=== PATIENT | male | born 1955 | race Caucasian/White ===

== ENCOUNTER 2017-11-18 19:49 | Emergency (ER) | payer OTHER ==
[~2017-11-18] VITALS: Ht 172.7 cm; Wt 170.1 kg
[2017-11-18] MEDS ORDERED: PIPER-TAZ 3.375 GM 50 ML IV STA (20:15)
[2017-11-18] MEDS ORDERED: SODIUM CHLORIDE 0.9% 500ML 500 ML IV STA (20:15)
[2017-11-18] MEDS ORDERED: METFORMIN HCL500 M2 PO (20:18)
[2017-11-18] MEDS ORDERED: PREDNISONE10 MG PO (20:18)
[2017-11-18] MEDS ORDERED: GLIMEPIRIDE2 MG PO (20:18)
[2017-11-18] MEDS ORDERED: VANCOMYCIN 1GM/NS 250 ML 250 ML IV ONE (20:30)
[2017-11-18 20:45] LABS: BASOPHILS % 0.2 % (0.0-1.0); EOSINOPHILS % 0.4 % (0.0-6.0); HEMATOCRIT 37.4 % (38.2-49.6); HEMOGLOBIN 12.7 g/dL (14.0-18.0); LYMPHOCYTES # (AUTO) 0.3 (1.0-3.2); LYMPHOCYTES % 2.8 % (18.0-39.1); MEAN CORPUSCULAR HEMOGLOBIN 29.8 pg (28-32); MEAN CORPUSCULAR VOLUME 87.8 fL (81-99); MONOCYTES % 10.2 % (4.4-11.3); NEUTROPHILS # (AUTO) 8.6 (2.1-6.9); NEUTROPHILS % 85.8 % (38.7-80.0); PLATELET COUNT 53 x10e3/uL (140-360); RED BLOOD COUNT 4.26 x10e6/uL (4.3-5.7); RED CELL DISTRIBUTION WIDTH 15.5 % (11.7-14.4)
[2017-11-18 20:49] LABS: INR 1.29; PROTHROMBIN TIME 15.1 seconds (11.9-14.5)
[2017-11-18 20:50] LABS: PARTIAL THROMBOPLASTIN TIME 32.8 seconds (23.8-35.5)
--- NOTE | 2017-11-18 20:51 | Diagnostic Imaging Report ---
EXAM: XR CHEST 1 VIEW DATE: 11/18/2017 8:15 PM INDICATION: Cellulitis COMPARISON: None FINDINGS: Lines and Tubes: None Heart and Mediastinum: Grossly unremarkable given low lung volumes, motion, and rotation. Lungs and Pleura: Perihilar opacities. Bones and Soft Tissues: No acute findings. IMPRESSION: 1. Underpenetration, body habitus, rotation to the right, and motion artifact degrade image quality limiting evaluation. 2. Questionable perihilar opacities could represent edema or infectious process. Signed by: Dr. Enrique Ayala MD on 11/18/2017 8:47 PM
[2017-11-18 21:01] LABS: ALANINE AMINOTRANSFERASE 84 IU/L (0-55); ALBUMIN 2.4 g/dL (3.5-5.0); ALBUMIN/GLOBULIN RATIO 0.7 (0.8-2.0); ALKALINE PHOSPHATASE 83 IU/L (40-150); ANION GAP 9.8 mmol/L (8-16); BLOOD UREA NITROGEN 14 mg/dL (7-26); BUN/CREATININE RATIO 17 (6-25); CALCIUM 8.4 mg/dL (8.4-10.2); CARBON DIOXIDE 28 mmol/L (22-29); CHLORIDE 97 mmol/L (98-107); CREATINE KINASE 599 IU/L (30-200); CREATININE, SERUM 0.82 mg/dL (0.72-1.25); EST GLOMERULAR FILTRATION RATE > 60 ML/MIN (60-); GLUCOSE 164 mg/dL (74-118); POTASSIUM 3.8 mmol/L (3.5-5.1); SODIUM 131 mmol/L (136-145)
[2017-11-18 21:08] LABS: B-TYPE NATRIURETIC PEPTIDE2 153.4 pg/mL (0-100)
[2017-11-18] MEDS ORDERED: ONDANSETRON HCL INJ 2 MG/ML VIAL IV PRN (21:45)
[2017-11-18] MEDS ORDERED: DEXTROSE 50% SYRINGE 50 ML IV PRN (21:45)
[2017-11-18] MEDS ORDERED: MORPHINE SULFATE 2 MG/ML SYR IV PRN (21:45)
[2017-11-18] MEDS ORDERED: SODIUM CHLORIDE 0.9% 1000ML 1,000 ML IV ONE (21:45)
--- OUTSIDE RECORDS SUMMARY | 2017-11-18 21:46 | XMS REPORT ---
[facility] Address Unknown Phone Unavailable Care Team Providers Care Headend Technician Name Role Phone NYA FRANCE Unavailable Unavailable Problems This patient has no known problems. Allergies, Adverse Reactions, Alerts This patient has no known allergies or adverse reactions. Medications This patient has no known medications. Results Test Description Test Time Test Comments Text Results Atomic Results Result Comments CHEST SINGLE (PORTABLE) 2017-11-18 20:47:00 [facility] [address] [id number] Patient Name: AIME MCCANN MR #: [id number] : 1955 Age/Sex: 62/M Req #: [id number] Adm Physician: Ordered by: MAGO DIEZ SPORTS MEDICINE COORDINATOR Report #: [id number] Location: ER Room/Bed: __ Procedure: [id number] DX/CHEST SINGLE (PORTABLE) Exam Date: 11/18/17 Exam Time: 2024 REPORT STATUS: Signed EXAM: XR CHEST 1 VIEW DATE: 11/18/2017 8:15 PM INDICATION: Cellulitis COMPARISON: None FINDINGS: Lines and Tubes: None Heart and Mediastinum: Grossly unremarkable given low lung volumes, motion, and rotation. Lungs and Pleura: Perihilar opacities. Bones and Soft Tissues: No acute findings. IMPRESSION: 1. Underpenetration, body habitus, rotation to the right, and motion artifact degrade image quality limiting evaluation. 2. Questionable perihilar opacities could represent edema or infectious process. Signed by: Dr. Enrique Ayala MD on 11/18/2017 8:47 PM Dictated By: ENRIQUE AYALA MD 46 Transcribed By: FABIAN on 11/18/172046 COPY TO: MAGO DIEZ NP
[2017-11-18 21:50] LABS: HYPOCHROMASIA SLIGHT; LYMPHOCYTES % (MANUAL) 1 % (19-48); MONOCYTES % (MANUAL) 9 % (3.4-9.0); NEUTROPHILS % (MANUAL) 90 % (40-74); PLATELET ESTIMATE MARKEDLY DECREASED; PLATELET MORPHOLOGY COMMENT NORMAL; RBC MORPHOLOGY COMMENT NORMAL
[2017-11-18] MEDS ORDERED: PIPER-TAZ 3.375 GM 50 ML IV SCH (22:00)
[2017-11-18] MEDS ORDERED: PIPER-TAZ 3.375 GM 50 ML IV ONE (22:00)
[2017-11-18 22:34] LABS: BILIRUBIN,URINE NEGATIVE (NEGATIVE); CLARITY,URINE SL CLOUDY (CLEAR); COLOR,URINE YELLOW (YELLOW); KETONES,URINE NEGATIVE (NEGATIVE); LEUKOCYTE ESTERASE ,URINE NEGATIVE (NEGATIVE); NITRITE,URINE NEGATIVE (NEGATIVE); PROTEIN,URINE DIPSTICK NEGATIVE (NEGATIVE); URINE UROBILINOGEN 0.2 mg/dL (0.2 - 1)
[2017-11-18 22:51] LABS: BACTERIA,URINE RARE /HPF; EPITHELIAL CELLS,URINE RARE /LPF; RBC,URINE 0-5 /HPF (0-5); WBC,URINE (MAN) 0-5 /HPF (0-5)
[2017-11-19] MEDS ORDERED: PIPER-TAZ 3.375 GM 50 ML IV SCH (06:00)
[2017-11-19] MEDS ORDERED: INSULIN REGULAR, HUMAN 100 UNIT/1 ML 3ML VIAL SQ SCH (07:30)
[2017-11-19] MEDS ORDERED: VANCOMYCIN 1GM/NS 250 ML 250 ML IV SCH (09:00)
== END 2017-11-18 22:43 | disposition left against medical advice (07) ==
LOC: ER 19:49 → UNDOADMIN 21:44 → ERHOLD 21:44 → ER 22:43
DX: R50.9 Fever, unspecified (principal); E11.622 Type 2 diabetes mellitus with other skin ulcer; L03.115 Cellulitis of right lower limb; L98.491 Non-pressure chronic ulcer of skin of other sites limited to breakdown of skin; L98.499 Non-pressure chronic ulcer of skin of other sites with unspecified severity
CPT/HCPCS: 36415; 71045; 80053; 81001; 82550; 82553; 83605; 83880; 84484; 85025; 85610; 85730; 87040; 87071; 87186; 87205; 99283

== ENCOUNTER 2017-11-19 00:16 | Inpatient (IN) | payer OTHER ==
[~2017-11-19] VITALS: Ht 172.7 cm; Wt 167.8 kg
[~2017-11-19 00:16] MED LIST: GLIMEPIRIDE2 MG PO; METFORMIN HCL500 M2 PO; PREDNISONE10 MG PO
--- OUTSIDE RECORDS SUMMARY | 2017-11-19 00:19 | XMS REPORT | Continuity of Care Document ---
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 No 11/18/17 7:48pm If yes, is advance directive on file with [facility]? No 11/18/17 7:48pm If not on file with [facility] will patient provide a copy? No 11/18/17 7:48pm Do you have a Directive to Physician? No 11/18/17 7:48pm Do you have a Medical Power of Manager Data Center? No 11/18/17 7:48pm Do you have an out of hospital Do Not Resuscitate Order? No 11/18/17 7:48pm Do you have any special needs we should be aware of? No 11/18/17 7:48pm Do you have a support person here with you today? Yes 11/18/17 7:48pm Did patient receive Notice of Privacy Practices? Yes 11/18/17 7:48pm Did patient receive patient rights and responsibilities? Yes 11/18/17 7:48pm Problems Medical Problem Onset Date Status Cellulitis of right leg Unknown Thrombocytopenia Unknown Wound cellulitis Unknown Medications Current Home Medications Medication Dose Units Route Directions Days Qty Instructions Start Date Glimepiride 2 Mg Tablet 4 Mg Oral Daily Metformin Hcl (Metformin Hcl Er) 500 Mg Tab.er.24 500 Mg Oral Twice A Day 60 Tab Prednisone 10 Mg Tab 10 Mg Oral Daily Social History No social history information available. Hospital Discharge Instructions No hospital discharge instruction information available. Plan of Care Discharge Date 11/18/17 10:43pm Disposition AGAINST MEDICAL ADVICE Condition at Discharge Other Forms Provided Work/School Excuse Prescriptions See Medication Section Functional Status No functional status information available. Allergies, Adverse Reactions, Alerts No known allergies. Immunizations No immunization information available. Vital Signs Acute Vital Signs Vital Response Date/Time Height 5 ft 8 in 11/18/2017 8:11pm Weight 375 lb 11/18/2017 8:11pm Body Mass Index 57.0 kg/m^2 11/18/2017 8:11pm Results Laboratory Results Test Name Result Units Flags Reference Collection Date/Time Result Date/ Time Comments White Blood Count 9.98 x10e3/uL 4.8-10.8 11/18/2017 8:20pm 11/18/2017 8 :47pm Red Blood Count 4.26 x10e6/uL L 4.3-5.7 11/18/2017 8:20pm 11/18/2017 8: 47pm Hemoglobin 12.7 g/dL L 14.0-18.0 11/18/2017 8:20pm 11/18/2017 8:47pm Hematocrit 37.4 % L 38.2-49.6 11/18/2017 8:20pm 11/18/2017 8:47pm Mean Corpuscular Volume 87.8 fL 81-99 11/18/2017 8:20pm 11/18/2017 8: 47pm Mean Corpuscular Hemoglobin 29.8 pg 28-32 11/18/2017 8:20pm 11/18/2017 8:47pm Mean Corpuscular Hemoglobin Concent 34.0 g/dL 31-35 11/18/2017 8:20pm 11/18/2017 8:47pm Red Cell Distribution Width 15.5 % H 11.7-14.4 11/18/2017 8:20pm 2017 8:47pm Platelet Count 53 x10e3/uL L 140-360 11/18/2017 8:20pm 11/18/2017 8: 47pm Neutrophils (%) (Auto) 85.8 % H 38.7-80.0 11/18/2017 8:20pm 11/18/2017 8 :47pm Lymphocytes (%) (Auto) 2.8 % L 18.0-39.1 11/18/2017 8:20pm 11/18/2017 8: 47pm Monocytes (%) (Auto) 10.2 % 4.4-11.3 11/18/2017 8:20pm 11/18/2017 8: 47pm Eosinophils (%) (Auto) 0.4 % 0.0-6.0 11/18/2017 8:20pm 11/18/2017 8: 47pm Basophils (%) (Auto) 0.2 % 0.0-1.0 11/18/2017 8:20pm 11/18/2017 8:47pm IM GRANULOCYTES % 0.6 % 0.0-1.0 11/18/2017 8:20pm 11/18/2017 8:47pm Neutrophils # (Auto) 8.6 H 2.1-6.9 11/18/2017 8:20pm 11/18/2017 8: 47pm Lymphocytes # (Auto) 0.3 L 1.0-3.2 11/18/2017 8:20pm 11/18/2017 8: 47pm Monocytes # (Auto) 1.0 H 0.2-0.8 11/18/2017 8:20pm 11/18/2017 8:47pm Eosinophils # (Auto) 0.0 0.0-0.4 11/18/2017 8:20pm 11/18/2017 8:47pm Basophils # (Auto) 0.0 0.0-0.1 11/18/2017 8:20pm 11/18/2017 8:47pm Absolute Immature Granulocyte (auto 0.06 x10e3/uL 0-0.1 11/18/2017 8: 20pm 11/18/2017 8:47pm Differential Total Cells Counted 100 11/18/2017 8:20pm 11/18/2017 9 :50pm Neutrophils % (Manual) 90 % H 40-74 11/18/2017 8:20pm 11/18/2017 9:50pm Lymphocytes % (Manual) 1 % L 19-48 11/18/2017 8:20pm 11/18/2017 9:50pm Monocytes % (Manual) 9 % 3.4-9.0 11/18/2017 8:20pm 11/18/2017 9:50pm Platelet Estimate MARKEDLY DECREASED 11/18/2017 8:20pm 11/18/2017 9 :50pm Platelet Morphology Comment NORMAL 11/18/2017 8:20pm 11/18/2017 9: 50pm Hypochromasia SLIGHT 11/18/2017 8:20pm 11/18/2017 9:50pm Red Cell Morphology Comment NORMAL 11/18/2017 8:20pm 11/18/2017 9: 50pm Prothrombin Time 15.1 seconds H 11.9-14.5 11/18/2017 8:20pm 11/18/2017 8 :51pm Prothromb Time International Ratio 1.29 11/18/2017 8:20pm 2017 8:51pm Oral Anticoagulant Therapy INR Values: 1. Low Intensity Therapy 1.5 - 2.0 2. Moderate Intensity Therapy 2.0 - 3.0 3. High Intensity Therapy(1) 2.5 - 3.5 4. High Intensity Therapy(2) 3.0 - 4.0 5. Panic Value INR > 5.0 Activated Partial Thromboplast Time 32.8 seconds 23.8-35.5 11/18/2017 8: 20pm 11/18/2017 8:51pm Urine Color YELLOW YELLOW 11/18/2017 8:20pm 11/18/2017 10:34pm Urine Clarity SL CLOUDY H CLEAR 11/18/2017 8:20pm 11/18/2017 10:34pm Urine Specific Vicco 1.015 1.010-1.025 11/18/2017 8:20pm 2017 10:34pm Urine pH 6 5 - 7 11/18/2017 8:20pm 11/18/2017 10:34pm Urine Leukocyte Esterase NEGATIVE NEGATIVE 11/18/2017 8:20pm 2017 10:34pm Urine Nitrite NEGATIVE NEGATIVE 11/18/2017 8:20pm 11/18/2017 10:34pm Urine Protein NEGATIVE NEGATIVE 11/18/2017 8:20pm 11/18/2017 10:34pm Urine Glucose (UA) NEGATIVE NEGATIVE 11/18/2017 8:20pm 11/18/2017 10: 34pm Urine Ketones NEGATIVE NEGATIVE 11/18/2017 8:20pm 11/18/2017 10:34pm Urine Urobilinogen 0.2 mg/dL 0.2 - 1 11/18/2017 8:20pm 11/18/2017 10: 34pm Urine Bilirubin NEGATIVE NEGATIVE 11/18/2017 8:20pm 11/18/2017 10: 34pm Urine Blood NEGATIVE NEGATIVE 11/18/2017 8:20pm 11/18/2017 10:34pm Sodium Level 131 mmol/L L 136-145 11/18/2017 8:20pm 11/18/2017 9:02pm Potassium Level 3.8 mmol/L 3.5-5.1 11/18/2017 8:20pm 11/18/2017 9:02pm Chloride Level 97 mmol/L L 98-107 11/18/2017 8:20pm 11/18/2017 9:02pm Carbon Dioxide Level 28 mmol/L 22-29 11/18/2017 8:20pm 11/18/2017 9: 02pm Anion Gap 9.8 mmol/L 8-16 11/18/2017 8:20pm 11/18/2017 9:02pm Blood Urea Nitrogen 14 mg/dL 7-26 11/18/2017 8:20pm 11/18/2017 9:02pm Creatinine 0.82 mg/dL 0.72-1.25 11/18/2017 8:20pm 11/18/2017 9:02pm BUN/Creatinine Ratio 17 6-25 11/18/2017 8:20pm 11/18/2017 9:02pm Estimat Glomerular Filtration Rate > 60 ML/MIN 60- 11/18/2017 8:20pm 9:02pm Ranges were taken from the National Kidney Disease Education Program and the National Kid[employer] Foundation literature. Reference ranges: 60 or greater: Normal 16-59 (for 3 consecutive months): Chronic kidney disease 15 or less: Kidney failure Glucose Level 164 mg/dL H 74-118 11/18/2017 8:20pm 11/18/2017 9:02pm Calcium Level 8.4 mg/dL 8.4-10.2 11/18/2017 8:20pm 11/18/2017 9:02pm Lactic Acid Level 22.6 MG/DL H 4.5-19.8 11/18/2017 8:20pm 11/18/2017 8: 57pm Total Bilirubin 1.9 mg/dL H 0.2-1.2 11/18/2017 8:20pm 11/18/2017 9:02pm Aspartate Amino Transf (AST/SGOT) 81 IU/L H 5-34 11/18/2017 8:20pm 11/18 9:02pm Alanine Aminotransferase (ALT/SGPT) 84 IU/L H 0-55 11/18/2017 8:20pm 01/2018 9:02pm Total Protein 5.9 g/dL L 6.5-8.1 11/18/2017 8:20pm 11/18/2017 9:02pm Albumin 2.4 g/dL L 3.5-5.0 11/18/2017 8:20pm 11/18/2017 9:02pm Globulin 3.5 g/dL 2.3-3.5 11/18/2017 8:20pm 11/18/2017 9:02pm Albumin/Globulin Ratio 0.7 L 0.8-2.0 11/18/2017 8:20pm 11/18/2017 9: 02pm Alkaline Phosphatase 83 IU/L 40-150 11/18/2017 8:20pm 11/18/2017 9: 02pm B-Type Natriuretic Peptide 153.4 pg/mL H 0-100 11/18/2017 8:20pm 2017 9:09pm Creatine Kinase 599 IU/L H 30-200 11/18/2017 8:20pm 11/18/2017 9:02pm Creatine Kinase MB 4.20 ng/mL 0-5.0 11/18/2017 8:20pm 11/18/2017 9: 08pm Troponin I 0.045 ng/mL 0-0.300 11/18/2017 8:20pm 11/18/2017 9:08pm Procedures No procedure information available. Encounters Encounter Location Arrival/Admit Date Discharge/Depart Date Attending Provider Departed Emergency Room [facility] 11/18/17 7:49pm 10:43pm GABO ARRIETA MD
[2017-11-19] MEDS ORDERED: ONDANSETRON HCL INJ 2 MG/ML VIAL IV PRN (01:00)
[2017-11-19] MEDS ORDERED: SODIUM CHLORIDE 0.9% 1000ML 1,000 ML IV ONE (01:00)
[2017-11-19] MEDS ORDERED: DEXTROSE 50% SYRINGE 50 ML IV PRN (01:00)
[2017-11-19] MEDS ORDERED: MORPHINE SULFATE 2 MG/ML SYR IV PRN (01:00)
[2017-11-19] MEDS: PIPER-TAZ 3.375 GM 50 ML IV SCH ×2 (01:32→05:33)
[2017-11-19 02:00] VITALS: BP 94/46
[2017-11-19] MEDS: VANCOMYCIN 1GM/NS 250 ML 250 ML IV SCH ×2 (02:05→13:01)
[2017-11-19 05:57] VITALS: BP 100/52
[2017-11-19] MEDS ORDERED: ALBUTEROL/IPRATROPIUM 3 ML NEB NEB PRN (07:15)
[2017-11-19] MEDS ORDERED: ACETAMINOPHEN/CODEINE 300MG - 30MG TAB PO PRN (07:30)
[2017-11-19] MEDS: INSULIN REGULAR, HUMAN 100 UNIT/1 ML 3ML VIAL SQ SCH ×4 (07:30→21:03)
--- NOTE | 2017-11-19 07:47 | History and Physical ---
PRIMARY CARE PHYSICIAN: Doctors at [facility]. CHIEF COMPLAINT: Right leg redness. HISTORY OF PRESENT ILLNESS: This is a 62-year-old man with a history of sarcoidosis and prediabetes, started on steroids for severe thrombocytopenia by his oncologist. Patient gained a significant amount of weight and had fluid retention, now developing a lesion on the right foreleg, worsened in size with redness. He came to the hospital, found to have cellulitis. He is admitted for further evaluation and management. Denies any fever, chills, sweats. Denies any nausea, vomiting, diarrhea. PAST MEDICAL HISTORY: Sarcoidosis, prediabetes, morbid obesity, thrombocytopenia. PAST SURGICAL HISTORY: Appendectomy, knee surgery, lymph node biopsy. ALLERGIES: PER THE ELECTRONIC MEDICAL RECORDS. FAMILY HISTORY/SOCIAL HISTORY: Patient is . He has no children. No alcohol. He quit cigarettes, had a remote history of smoking. MEDICATIONS: Per the electronic medical records. Medications reviewed. REVIEW OF SYSTEMS: Denies any dizziness, chest pain. VITAL SIGNS: Reviewed. PHYSICAL EXAMINATION GENERAL APPEARANCE: A tired-appearing man resting in bed. HEENT: Anicteric. Pupils responsive to light. No oral lesions. CARDIOVASCULAR: Normal S1/S2. LUNGS: He has reduced breath sounds throughout. ABDOMEN: Soft. A large abdomen. He has edema of the lower abdominal wall. He has significant edema of the groin region. He has fungal infection of the groin with odor. He has scrotal edema. EXTREMITIES: He has bilateral lower extremity edema 2+. He has hyperpigmentation of the lower aspect of the bilateral forelegs. He has purpuric changes of the right lower foreleg and right foot. SKIN: Dry. PSYCHIATRIC: Flat affect. NEUROLOGICALLY: Alert and oriented x3. Moving all extremities. LABS: Reviewed. ASSESSMENT: A 62-year-old man. 1. Peripheral edema. 2. Right foot and right lower foreleg cellulitis. 3. Intertriginous fold fungal infection. 4. Sarcoidosis. 5. Prediabetes. 6. Morbid obesity. 7. Normocytic anemia, mild. 8. Thrombocytopenia. 9. Hyponatremia. 10. Lactic acidemia. 11. Hyperbilirubinemia and transaminitis. 12. Elevated Beta natriuretic peptide. PLAN 1. Continue IV vancomycin and IV Zosyn. 2. Infectious disease consultation. 3. Obtain 2-D echocardiogram. 4. Diurese patient. 5. Obtain a hepatitis panel. 6. Obtain sed rate. 7. Consult Cardiology to assist in diuresis and for the 2-D echo evaluation. 8. Obtain hemoglobin A1c and lipid panel and use diabetic diet. 9. Use nystatin powder for groin fungal infection. 10. Will hold glimepiride for now and hold metformin while he is hospitalized. He is off of prednisone. We will not continue. 11. Will used SELVIN hose for DVT prophylaxis. 12. Will give nebs p.r.n. for sarcoidosis and respiratory issues. 13. Monitor closely. Follow up recommendations. Follow up echocardiogram. Job#: [id number] EV
[2017-11-19 07:56] VITALS: BP 141/64
[2017-11-19] MEDS: FUROSEMIDE INJ 10 MG/ML 4 ML VIAL IV SCH ×2 (08:07→21:02)
[2017-11-19] MEDS: NYSTATIN 15 GM POWDER UD BTL TOP SCH ×3 (08:08→21:02)
[2017-11-19 09:45] LABS: CHOL/HDL RATIO 2.2 (3.9-4.7)
--- NOTE | 2017-11-19 11:12 | Consultation ---
DATE OF CONSULTATION: November 19, 2017 INFECTIOUS DISEASE CONSULTATION REASON FOR CONSULTATION: To evaluate and assist in managing a patient with edema and cellulitis. HISTORY: Information is gathered from the current medical record. I interviewed the patient at the bedside. He is a 62-year-old male with sarcoidosis and prediabetes, who was started on increased dose of prednisone for severe thrombocytopenia with platelet count at the time of initiation of the high dose of steroid that was 13. He has since gained a significant amount of weight and developed generalized edema. A few days ago, the patient reports that he bumped his right leg into a box in his home. He subsequently developed a purplish redness of his right lower extremity with pain. He says there was not much warmth or tenderness. He has been admitted to hospital for further evaluation and treatment. His medical history is as reported above. There is a history of morbid obesity, appendectomy, knee surgery. His sarcoidosis was confirmed on lymph node biopsy. He gives no history of kidney disease, liver disease, myocardial infarction or CVA. SOCIAL HISTORY: He quit smoking years ago. He denies alcohol and other forms of recreational drug abuse. FAMILY HISTORY: Not contributory to his current hospitalization. HE HAS NO ALLERGIES LISTED. MEDICATIONS: At the time of this evaluation, he is started on treatment with Zosyn and vancomycin. The rest of his medications are per the medication administration report. REVIEW OF SYSTEMS: Positive for significant amount of weight gain and generalized edema. The patient also reports that his blood sugar has become elevated and his blood pressure has become elevated since initiation of the high dose of steroids. He has no headache or neck stiffness. No visual or auditory complaints, no sore throat, no chest or abdominal pain, no frequency or dysuria, no hematuria. PHYSICAL EXAMINATION GENERAL: He is a pleasant adult male. He is alert, responsive, coherent. He appears nontoxic and is in no acute distress. He is morbidly obese with generalized edema. VITAL SIGNS: Maximum temperature recorded since presentation is 99.2 degrees Fahrenheit. He is hemodynamically stable. HEENT: He has no gross pallor, no obvious icterus, no oropharyngeal lesions. NECK: Supple. CHEST: Symmetric. LUNGS: Clear. HEART: Sounds are regular without a significant murmur. ABDOMEN: Obese, soft, nontender, with normal bowel sounds. EXTREMITIES: There is diffuse ecchymosis of his right lower extremity from the knee down to his toes. There is pitting edema of both lower extremities with chronic stasis changes. The right leg is slightly warmer than the left. An Matt wrap is applied to the right lower extremity. We do not have any current CBC or chemistry reports. No culture reports. A chest x-ray shows underpenetration due to body habitus with questionable perihilar opacities. IMPRESSION: This 62-year-old male with sarcoidosis has been recently on high doses of steroids. He reports bumping his leg on a box at home. He has subsequently developed diffuse ecchymosis of the right leg. The right leg is slightly warmer than the left. cellulitis cannot be excluded. I suggest we discontinue Zosyn, continue coverage with vancomycin. The patient tells me that he is being diuresed. Monitor temperature, CBC, renal function. Monitor clinical response to treatment. I have discussed the findings and treatment with the patient at the bedside. I will discuss the patient with Dr. Michelle, whom I thank for the consult and opportunity to participate in the patient's care. NAMITA ORDOÑEZ MD Job#: [id number] KAUSHIK
--- NOTE | 2017-11-19 12:01 | Cardiology Report ---
DATE OF STUDY: November 19, 2017 ECHOCARDIOGRAM ATTENDING PHYSICIAN: Dr. Gabo Arrieta. M-MODE: Normal chamber sizes. Left ventricular hypertrophy. Normal contractility. Aortic sclerosis. Normal mitral valve. No pericardial effusion. SECTOR SCAN: Normal chamber sizes. Left ventricular hypertrophy. Normal contractility. Ejection fraction is approximately 65%. Aortic valve sclerotic. Mitral and tricuspid valves are normal. There is no pericardial effusion. CARDIAC DOPPLER STUDY WITH COLOR: Trace tricuspid regurgitation. CONCLUSIONS: 1. Technically difficult study. 2. Concentric left ventricular hypertrophy with ejection fraction of approximately 65%. 3. Aortic sclerosis without stenosis. 4. Trace tricuspid regurgitation. Job#: [id number] EV cc:GABO ARRIETA MD
[2017-11-19] MEDS ORDERED: METOLAZONE 5 MG TAB PO ONE (12:30)
[2017-11-19] MEDS ORDERED: POTASSIUM CHLORIDE 20 MEQ TAB CR PO ONE ×2 (12:30→13:00)
[2017-11-19] MEDS ORDERED: VANCOMYCIN 1GM/NS 250 ML 250 ML IV SCH (16:00)
--- NOTE | 2017-11-19 16:06 | Consultation ---
DATE OF CONSULTATION: November 19, 2017 CARDIAC CONSULTATION CLINICAL HISTORY: This is a 62-year-old white man with a history of sarcoidosis and severe obesity admitted via the emergency room because of steroid side effect, which was given to treat severe thrombocytopenia with platelet count down to 13,000. This unfortunate gentleman has had progressive edema following steroid therapy over the past 3 weeks. He has been using his compression bandages for his edema. Cardiology consultation was requested. Echocardiogram showed normal left ventricular ejection fraction of approximately 55%. PAST MEDICAL HISTORY: Remarkable for prediabetes, morbid obesity, sarcoidosis, thrombocytopenia, chronic steroid usage. PAST SURGICAL HISTORY: Appendectomy, knee surgery, and biopsy. ALLERGIES: NONE KNOWN. FAMILY HISTORY: Father had a heart attack. Mother had lung cancer. PERSONAL/SOCIAL HISTORY: He was a heavy alcohol user 40 something years ago, but currently does not drink. He quit smoking approximately 40 years ago. 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 MEDICATIONS: Please refer to the chart. REVIEW OF SYSTEMS: Noncontributory. PHYSICAL EXAMINATION VITAL SIGNS: Stable. CARDIOVASCULAR: S1 and S2 are regular. No appreciable murmur. ABDOMEN: Soft. Bowel sounds are present. EXTREMITIES: Showed 2+ pitting edema. IMPRESSION 1. Peripheral edema probably related to his obesity and steroid usage. 2. Right foot and leg cellulitis. 3. Sarcoidosis. 4. Steroid side effect. 5. Thrombocytopenia: Treated with steroids. 6. Prediabetes. 7. Morbid obesity. 8. Mild anemia. 9. Hyponatremia. RECOMMENDATIONS: Feet elevation. Decrease fluid intake. Trial of diuretics. Compression stockings. Job#: [id number] RI cc:GABO ARRIETA MD
[2017-11-19] MEDS: CEFEPIME HCL 2 GM VIAL IV SCH (16:10)
[2017-11-19 16:26] LABS: BASOPHILS % 0.3 % (0.0-1.0); EOSINOPHILS # (AUTO) 0.1 (0.0-0.4); EOSINOPHILS % 1.3 % (0.0-6.0); HEMATOCRIT 40.1 % (38.2-49.6); HEMOGLOBIN 13.2 g/dL (14.0-18.0); LYMPHOCYTES # (AUTO) 0.5 (1.0-3.2); LYMPHOCYTES % 5.2 % (18.0-39.1); MEAN CORPUSCULAR HEMOGLOBIN 30.4 pg (28-32); MEAN CORPUSCULAR HGB CONC 32.9 g/dL (31-35); MEAN CORPUSCULAR VOLUME 92.4 fL (81-99); MONOCYTES # (AUTO) 1.2 (0.2-0.8); MONOCYTES % 12.3 % (4.4-11.3); NEUTROPHILS # (AUTO) 7.9 (2.1-6.9); NEUTROPHILS % 80.1 % (38.7-80.0); RED BLOOD COUNT 4.34 x10e6/uL (4.3-5.7); RED CELL DISTRIBUTION WIDTH 15.9 % (11.7-14.4)
[2017-11-19 16:38] LABS: PLATELET COUNT 43 x10e3/uL (140-360)
[2017-11-19 16:54] LABS: ANISOCYTOSIS SLIGHT; LYMPHOCYTES % (MANUAL) 7 % (19-48); MONOCYTES % (MANUAL) 8 % (3.4-9.0); NEUTROPHILS % (MANUAL) 85 % (40-74); PLATELET ESTIMATE MARKEDLY DECREASED; PLATELET MORPHOLOGY COMMENT NORMAL; RBC MORPHOLOGY COMMENT NORMAL
[2017-11-19 17:01] VITALS: BP 143/63
[2017-11-19 20:28] VITALS: BP 143/62
[2017-11-20] VITALS: BP 151/67
[2017-11-20] MEDS: CEFEPIME HCL 2 GM VIAL IV SCH (02:25)
[2017-11-20] MEDS ORDERED: VANCOMYCIN IV SCH (03:00)
[2017-11-20] MEDS ORDERED: [UNRECOGNIZED DRUG - OTHER] IV SCH (03:00)
[2017-11-20] MEDS ORDERED: VANCOMYCIN 1GM/NS 250 ML 250 ML IV SCH (03:00)
[2017-11-20 03:24] LABS: BILIRUBIN,URINE NEGATIVE (NEGATIVE); CLARITY,URINE CLEAR (CLEAR); COLOR,URINE YELLOW (YELLOW); KETONES,URINE NEGATIVE (NEGATIVE); LEUKOCYTE ESTERASE ,URINE NEGATIVE (NEGATIVE); NITRITE,URINE NEGATIVE (NEGATIVE); PROTEIN,URINE DIPSTICK NEGATIVE (NEGATIVE); URINE UROBILINOGEN 0.2 mg/dL (0.2 - 1)
[2017-11-20 03:25] LABS: BACTERIA,URINE RARE /HPF; EPITHELIAL CELLS,URINE RARE /LPF; MUCUS,URINE MODERATE (RARE); WBC,URINE (MAN) 0-5 /HPF (0-5)
[2017-11-20 05:45] VITALS: BP 130/58
[2017-11-20 07:24] LABS: BASOPHILS % 0.1 % (0.0-1.0); EOSINOPHILS # (AUTO) 0.1 (0.0-0.4); EOSINOPHILS % 1.3 % (0.0-6.0); HEMATOCRIT 38.7 % (38.2-49.6); HEMOGLOBIN 12.9 g/dL (14.0-18.0); LYMPHOCYTES # (AUTO) 0.3 (1.0-3.2); LYMPHOCYTES % 3.4 % (18.0-39.1); MEAN CORPUSCULAR HGB CONC 33.3 g/dL (31-35); MONOCYTES # (AUTO) 0.9 (0.2-0.8); MONOCYTES % 10.6 % (4.4-11.3); NEUTROPHILS # (AUTO) 7.1 (2.1-6.9); NEUTROPHILS % 83.8 % (38.7-80.0); PLATELET COUNT 67 x10e3/uL (140-360); RED CELL DISTRIBUTION WIDTH 15.5 % (11.7-14.4)
[2017-11-20 07:28] VITALS: BP 106/52
[2017-11-20] MEDS: INSULIN REGULAR, HUMAN 100 UNIT/1 ML 3ML VIAL SQ SCH ×2 (07:30→11:30)
[2017-11-20 07:53] LABS: ALANINE AMINOTRANSFERASE 84 IU/L (0-55); ALBUMIN 2.3 g/dL (3.5-5.0); ALBUMIN/GLOBULIN RATIO 0.6 (0.8-2.0); ALKALINE PHOSPHATASE 95 IU/L (40-150); ANION GAP 15.8 mmol/L (8-16); BLOOD UREA NITROGEN 15 mg/dL (7-26); BUN/CREATININE RATIO 17 (6-25); CALCIUM 8.6 mg/dL (8.4-10.2); CARBON DIOXIDE 31 mmol/L (22-29); CHLORIDE 92 mmol/L (98-107); CREATININE, SERUM 0.89 mg/dL (0.72-1.25); EST GLOMERULAR FILTRATION RATE > 60 ML/MIN (60-); GLUCOSE 134 mg/dL (74-118); SODIUM 136 mmol/L (136-145)
[2017-11-20 08:05] LABS: POTASSIUM 2.8 mmol/L (3.5-5.1)
[2017-11-20] MEDS: NYSTATIN 15 GM POWDER UD BTL TOP SCH (08:45)
[2017-11-20] MEDS: FUROSEMIDE INJ 10 MG/ML 4 ML VIAL IV SCH (08:46)
[2017-11-20] MEDS ORDERED: POTASSIUM CHLORIDE 20 MEQ TAB CR PO ONE ×2 (09:00→13:45)
[2017-11-20] MEDS ORDERED: POTASSIUM CHLORIDE 20MEQ/100ML 200 ML IV ONE (09:00)
[2017-11-20 10:19] LABS: BAND NEUTROPHILS % (MANUAL) 3 %; EOSINOPHILS % (MANUAL) 1 % (0-7); LYMPHOCYTES % (MANUAL) 3 % (19-48); MONOCYTES % (MANUAL) 9 % (3.4-9.0); NEUTROPHILS % (MANUAL) 84 % (40-74); PLATELET ESTIMATE SLIGHTLY DECREASED; PLATELET MORPHOLOGY COMMENT NORMAL; RBC MORPHOLOGY COMMENT NORMAL
[2017-11-20] MEDS ORDERED: CEFDINIR250 MG/5 M PO (13:56)
[2017-11-20] MEDS ORDERED: FUROSEMIDE10 MG/1 M1 IV (13:56)
[2017-11-20] MEDS ORDERED: NYAMYC15 GM TOP (13:56)
--- NOTE | 2017-11-20 14:14 | Progress Note ---
DATE: November 20, 2017 INFECTIOUS DISEASE PROGRESS NOTE The patient is alert and responsive. I met him in a bedside chair. He is concerned that the edema of his lower extremities persists, the ecchymosis persists. No respiratory, gastrointestinal or genitourinary complaints. No overt medication reaction reported. In the past 24 hours, his maximum temperature was up to 99.2 degrees Fahrenheit. His most recent temperature 97.6. He is hemodynamically stable. He is morbidly obese. He has no gross pallor, no obvious icterus, no oropharyngeal lesions. His neck is supple. The chest is symmetric. The lungs are clear. Heart sounds are regular without a new murmur. The abdomen is obese, soft. Bowel sounds are present. There is gross pitting edema of the lower extremities with extensive ecchymosis involving the right leg and foot. His white count is 8.4, hemoglobin 12.9, platelet count is 67 up from 43. His serum creatinine is 0.8. The patient had 2 sets of blood cultures drawn on November 18. One set is reported positive gram-negative bacilli. Repeat blood cultures from November 19 are being processed. IMPRESSION: He has gram-negative septicemia. The source of his bloodstream infection is unclear. He is on treatment for cellulitis superimposed on gross edema of the lower extremities with extensive ecchymosis of the right leg. He has thrombocytopenia with a history of sarcoidosis. The patient tells me that he is considering signing out against medical advice to go see the physician that has been treating him for his sarcoidosis and thrombocytopenia, that this physician has promised to see him in the office and facilitate his admission to [facility]. He is aware of the positive blood cultures and the need to continue antibiotics. He is aware of the low potassium, supplements of which have been ordered. That order has been written to replenish his potassium. I have discussed the findings and need to continue treatment with the patient at the bedside. I have informed Dr. Michelle about the patient's intention to sign out against medical advice. NAMITA ORDOÑEZ MD Job#: [id number] EV
--- NOTE | 2017-11-21 11:01 | Discharge Summary ---
DISCHARGE DATE: Monday, November 20, 2017, AMA. PRINCIPAL DIAGNOSES: 1. Peripheral edema. 2. Right foot and right lower leg cellulitis. 3. Intertriginous fold fungal infection. 4. Sarcoidosis. 5. Prediabetes. 6. Morbid obesity. 7. Normocytic anemia, mild. 8. Thrombocytopenia. 9. Hyponatremia. 10. Lactic acidemia. 11. Hyperbilirubinemia and transaminitis. 12. Elevated B-type natriuretic peptide. 13. Steroid side effect. SECONDARY DIAGNOSES: 1. Sarcoidosis. 2. Prediabetes. 3. Morbid obesity. 4. Thrombocytopenia. 5. Appendectomy. 6. Knee surgery. 7. Lymph node biopsy. CHIEF COMPLAINT: Lesion to the right foreleg, worsening in size with redness over several days prior. No alleviating or aggravating factors mentioned. HPI: This 62-year-old man with a history of sarcoidosis and prediabetes, who is recently started on steroids for his severe thrombocytopenia by his oncologist. Patient reported he gained over 50 pounds of weight. He attributes to fluid retention over the last several weeks. Recently in the past week, the patient bumped his legs on a TV box and subsequently developed a lesion with increasing swelling and ecchymosis. He also became concerned when the lesion began to weep and presented himself to [facility] for evaluation. HOSPITAL COURSE: The patient presented to the emergency room on the evening of November 19 without fever, chills, sweats, nausea, vomiting, and diarrhea; however, due to his significant edema of the lower abdomen wall, groin region, and lower extremities, the patient was admitted. The patient was noted to have scrotal edema in groin with odor upon admission and was moved to the service of Dr. Arrieta and his assembled team to include infectious disease consult as well as cardiology consult with Dr. Azar. Within the next 24 hours, cardiology evaluated the patient to assist with diuresis and 2D echo evaluation. Hemoglobin A1c was assessed at 7.7. Oral antidiabetics were held and infectious disease reviewed IV antibiotic regimen. Around noon on November 20, patient informed staff that he was leaving the facility in spite of his need for care, at which point, attending was notified. Attending and consulting physicians were made aware of the patient's intent to sign AMA, at which time the patient signed his AMA forms and was offered bridge antibiotic therapy, nystatin powder, and asked to continue his p.o. diabetic medications. DISCHARGE MEDICATIONS: The patient was prescribed cefdinir and nystatin for cellulitis and intertrigo infection. He was asked to continue p.o. glimepiride and metformin as well as to stop his p.o. prednisone. FOLLOWUP: The patient reported he has a followup examination with Dr. Batista at [facility] tomorrow morning at 8:45. CONDITION ON DISCHARGE: Patient left the facility in a wheelchair in stable condition. Denied all needs and voiced no complaints. Additionally, the patient was provided with potassium supplementation prior to leaving for his hypokalemia and encouraged to consume foods high in potassium until seeking further medical treatment in the a.m. Dictated by Krunal Armenta NP GABO ARRIETA MD Job#: [id number]
== END 2017-11-20 14:20 | disposition home or self-care (01) | DRG 603 ==
LOC: ER 00:16 → MED/SURG2 01:14
PROVIDERS: ADMIT Internal Medicine; ATTEND Internal Medicine
DX: L03.115 Cellulitis of right lower limb (principal); Z68.43 Body mass index [BMI] 50.0-59.9, adult; E87.1 Hypo-osmolality and hyponatremia; E87.2 Acidosis; R17 Unspecified jaundice; B36.8 Other specified superficial mycoses; E66.01 Morbid (severe) obesity due to excess calories; D86.9 Sarcoidosis, unspecified; D64.9 Anemia, unspecified; R73.03 Prediabetes; L30.4 Erythema intertrigo; R74.8 Abnormal levels of other serum enzymes; T38.0X5A Adverse effect of glucocorticoids and synthetic analogues, initial encounter; Z87.891 Personal history of nicotine dependence; I51.7 Cardiomegaly; I70.0 Atherosclerosis of aorta; I08.2 Rheumatic disorders of both aortic and tricuspid valves; E87.6 Hypokalemia; N50.89 Other specified disorders of the male genital organs
CPT/HCPCS: 36415; 80053; 80061; 81001; 82948; 83036; 83880; 85025; 85651; 87040; 93306; 99283; J0692; J1940; J2543; J3370; J3480; J7030

== ENCOUNTER 2022-01-29 05:49 | Emergency (ER) | payer MEDICARE, OTHER ==
[~2022-01-29] VITALS: Ht 170.2 cm; Wt 130.2 kg
[~2022-01-29 05:49] MED LIST changes: +CEFDINIR250 MG/5 M PO; +FUROSEMIDE10 MG/1 M1 IV; +NYAMYC15 GM TOP
[2022-01-29] MEDS ORDERED: Morphine 4mg INJECTION 4 MG/ML INJ IV STA (06:18)
[2022-01-29] MEDS ORDERED: ONDANSETRON HCL INJ 2MG/ML 2ML 2 MG/ML VIAL IV STA (06:18)
[2022-01-29] MEDS ORDERED: SODIUM CHLORIDE 0.9% 1000ML 1,000 ML IV STA ×2 (06:18→07:31)
[2022-01-29] MEDS ORDERED: Vancomycin IV 1 GM in SODIUM CHLORIDE 0.9% 250ML 250 ML IV ONE (06:30)
[2022-01-29 06:58] LABS: BASOPHILS % 0.7 % (0.0-1.0); EOSINOPHILS # (AUTO) 0.2 (0.0-0.4); EOSINOPHILS % 3.7 % (0.0-6.0); HEMOGLOBIN 13.1 g/dL (14.0-18.0); LYMPHOCYTES # (AUTO) 0.3 (1.0-3.2); MEAN CORPUSCULAR HEMOGLOBIN 30.5 pg (28-32); MEAN CORPUSCULAR HGB CONC 33.6 g/dL (31-35); MEAN CORPUSCULAR VOLUME 90.9 fL (81-99); MONOCYTES # (AUTO) 0.6 (0.2-0.8); MONOCYTES % 14.5 % (4.4-11.3); NEUTROPHILS # (AUTO) 3.2 (2.1-6.9); NEUTROPHILS % 73.6 % (38.7-80.0); PLATELET COUNT 325 x10e3/uL (140-360); RED BLOOD COUNT 4.29 x10e6/uL (4.3-5.7); RED CELL DISTRIBUTION WIDTH 14.6 % (11.7-14.4)
[2022-01-29 07:08] LABS: INR 1.13; PROTHROMBIN TIME 15.5 seconds (11.9-14.5)
[2022-01-29 07:09] LABS: PARTIAL THROMBOPLASTIN TIME 38.6 seconds (23.8-35.5)
[2022-01-29 07:26] LABS: ALBUMIN 3.1 g/dL (3.5-5.0); ALBUMIN/GLOBULIN RATIO 0.5 (0.8-2.0); ANION GAP 13.1 mmol/L (8-16); CALCIUM 8.8 mg/dL (8.4-10.2); CREATININE, SERUM 0.87 mg/dL (0.72-1.25); MAGNESIUM 2.3 MG/DL (1.3-2.1); POTASSIUM 4.1 mmol/L (3.5-5.1)
[2022-01-29 07:35] LABS: CREATINE KINASE MB 1.5 ng/mL (0-5.0)
[2022-01-29 08:17] LABS: CLARITY,URINE CLOUDY (CLEAR); COLOR,URINE YELLOW (YELLOW); KETONES,URINE NEGATIVE (NEGATIVE); LEUKOCYTE ESTERASE ,URINE NEGATIVE (NEGATIVE); NITRITE,URINE NEGATIVE (NEGATIVE); PROTEIN,URINE DIPSTICK NEGATIVE (NEGATIVE); URINE UROBILINOGEN 0.2 mg/dL (0.2 - 1)
[2022-01-29 08:42] LABS: AMORPHOUS SEDIMENT,URINE MANY (FEW); BACTERIA,URINE MANY /HPF; EPITHELIAL CELLS,URINE FEW /LPF; WBC,URINE (MAN) 0-5 /HPF (0-5)
[2022-01-29] MEDS ORDERED: IOPAMIDOL 370 MG/ML 100 ML INFUS..BTL INJ ONE (08:47)
== END 2022-01-29 11:40 | disposition home or self-care (01) ==
LOC: ER 06:00
DX: R10.13 Epigastric pain (principal); K42.0 Umbilical hernia with obstruction, without gangrene; L03.818 Cellulitis of other sites; U07.1 COVID-19; R74.02 Elevation of levels of lactic acid dehydrogenase [LDH]
CPT/HCPCS: 36415; 71045; 74177; 80053; 81001; 82550; 82553; 83605; 83690; 83735; 83880; 84484; 85025; 85610; 85730; 87040; 87086; 93005; 99284; C9113; J2270; J2405; J2543; J3370; J7030; J7050; Q9967; U0002